=== PATIENT | female | born 1995 | race Caucasian/White ===

== ENCOUNTER 2018-08-01 17:08 | Outpatient (CLI) | payer MEDICAID ==
[2018-08-01 17:41] LABS: MICROSCOPIC INDICATED
[2018-08-01 17:47] LABS: AMPHETAMINE SCREEN, URINE Negative (Negative); BARBITURATE SCREEN, URINE Negative (Negative); BENZODIAZEPINE SCREEN, URINE Negative (Negative); CANNABINOID SCREEN, URINE Negative (Negative); COCAINE SCREEN, URINE Negative (Negative); METHADONE SCREEN, URINE Negative (Negative); OPIATE SCREEN, URINE Negative (Negative)
[2018-08-01 17:48] LABS: BASOPHILS # (AUTO) 0.03 x10^3/uL (0-0.1); BASOPHILS % (AUTO) 0 % (0-1); EOSINOPHILS # (AUTO) 0.02 x10^3/uL (0-0.4); EOSINOPHILS % (AUTO) 0 % (1-7); LYMPHOCYTES # (AUTO) 1.48 x10^3/uL (1-3.4); LYMPHOCYTES % (AUTO) 15 % (22-44); MD NO; MEAN CORPUSCULAR HEMOGLOBIN 24.4 pg (27.0-34.8); MEAN CORPUSCULAR HGB CONC 32.6 g/dL (32.4-35.8); MEAN CORPUSCULAR VOLUME 74.9 fL (80-100); MEAN PLATELET VOLUME 8.6 fL (7.4-10.4); MONOCYTES # (AUTO) 0.78 x10^3/uL (0.2-0.8); MONOCYTES % (AUTO) 8 % (2-9); NEUTROPHILS # (AUTO) 7.36 x10^3/uL (1.8-6.8); NEUTROPHILS % (AUTO) 76 % (42-75); PLATELET COUNT 241 x10^3/uL (130-400); RED BLOOD COUNT 3.75 x10^6/uL (3.82-5.3); RED CELL DISTRIBUTION WIDTH 15.9 % (9.6-15.2)
== END 2018-08-01 21:20 | disposition home or self-care (01) ==
LOC: LDOP 17:08 → UNDOADMOB 17:12 → LDIP 17:12 → LDOP 21:20
PROVIDERS: ATTEND Student in an Organized Health Care Education/Training Program
DX: O09.33 Supervision of pregnancy with insufficient antenatal care, third trimester (principal); O62.9 Abnormality of forces of labor, unspecified; O47.1 False labor at or after 37 completed weeks of gestation; O34.219 Maternal care for unspecified type scar from previous cesarean delivery; Z3A.37 37 weeks gestation of pregnancy
CPT/HCPCS: 36415; 59025; 76805; 80307; 81001; 85025; 86592; 86762; 86850; 86900; 87340; 87806; 99201; G0463; G0475

== ENCOUNTER 2018-08-16 18:03 | Inpatient (IN) | payer MEDICAID ==
[~2018-08-16] VITALS: Ht 152.4 cm; Wt 56.4 kg
[2018-08-16 18:18] VITALS: BP 134/80
[2018-08-16] MEDS ORDERED: OXYTOCIN 30U/ 0.9% NaCL 500ML 500 ML IV SCH (19:01)
[2018-08-16] MEDS ORDERED: LACTATED RINGERS 1,000 ML IVBOLUS ONE (19:30)
[2018-08-16] MEDS ORDERED: SODIUM CITRATE/CITRIC ACID 30 ML UDC PO ONE (19:30)
[2018-08-16] MEDS ORDERED: NEWBORN KIT ONE (19:30)
[2018-08-16] MEDS ORDERED: OXYTOCIN 30U/ 0.9% NaCL 500ML 500 ML ONE (19:30)
[2018-08-16] MEDS ORDERED: METOCLOPRAMIDE 5 MG/ML, 2ML IV ONE (19:30)
[2018-08-16] MEDS ORDERED: SODIUM CITRATE/CITRIC ACID 30 ML UDC ONE (19:31)
[2018-08-16] MEDS ORDERED: METOCLOPRAMIDE 5 MG/ML, 2ML ONE (19:31)
[2018-08-16] MEDS ORDERED: MISOPROSTOL 200 MCG TABLET ONE (19:31)
[2018-08-16 19:47] LABS: AMPHETAMINE SCREEN, URINE Negative (Negative); BARBITURATE SCREEN, URINE Negative (Negative); BENZODIAZEPINE SCREEN, URINE Negative (Negative); CANNABINOID SCREEN, URINE Negative (Negative); COCAINE SCREEN, URINE Negative (Negative); METHADONE SCREEN, URINE Negative (Negative); OPIATE SCREEN, URINE Negative (Negative)
[2018-08-16 19:54] LABS: BASOPHILS # (AUTO) 0.03 x10^3/uL (0-0.1); BASOPHILS % (AUTO) 0 % (0-1); EOSINOPHILS # (AUTO) 0.01 x10^3/uL (0-0.4); EOSINOPHILS % (AUTO) 0 % (1-7); LYMPHOCYTES # (AUTO) 1.83 x10^3/uL (1-3.4); LYMPHOCYTES % (AUTO) 20 % (22-44); MD NO; MEAN CORPUSCULAR HEMOGLOBIN 23.3 pg (27.0-34.8); MEAN CORPUSCULAR HGB CONC 31.8 g/dL (32.4-35.8); MEAN CORPUSCULAR VOLUME 73.3 fL (80-100); MEAN PLATELET VOLUME 9.4 fL (7.4-10.4); MONOCYTES # (AUTO) 0.62 x10^3/uL (0.2-0.8); MONOCYTES % (AUTO) 7 % (2-9); NEUTROPHILS # (AUTO) 6.49 x10^3/uL (1.8-6.8); NEUTROPHILS % (AUTO) 72 % (42-75); PLATELET COUNT 227 x10^3/uL (130-400); RED BLOOD COUNT 3.72 x10^6/uL (3.82-5.3); RED CELL DISTRIBUTION WIDTH 16.5 % (9.6-15.2)
[2018-08-16] MEDS ORDERED: OXYcodone 5 MG/5 ML ORAL.SOL UDC PO PRN (21:00)
[2018-08-16] MEDS ORDERED: ALBUTEROL SULFATE 2.5 MG/3 ML NPPB PRN (21:00)
[2018-08-16] MEDS ORDERED: HYDROmorphone 1 MG/ML, 1ML IV PRN (21:00)
[2018-08-16] MEDS ORDERED: hydrALAzine 20 MG/ML, 1ML IV PRN (21:00)
[2018-08-16] MEDS ORDERED: MEPERIDINE/PF 25MG/0.5ML IVPush PRN (21:00)
[2018-08-16] MEDS ORDERED: HYDROcodone/APAP 7.5-325MG/15ML UDC PO PRN (21:00)
[2018-08-16] MEDS ORDERED: PROMETHAZINE 25 MG/ML, 1ML IV PRN (21:00)
[2018-08-16] MEDS ORDERED: MIDAZOLAM 1 MG/ML, 2ML IV PRN (21:00)
[2018-08-16] MEDS ORDERED: EPHEDRINE 50 MG/ML, 1ML IVPush PRN (21:00)
[2018-08-16] MEDS ORDERED: LABETALOL 5MG/ML, 20ML IV PRN (21:00)
[2018-08-16] MEDS ORDERED: ONDANSETRON 2MG/ML, 2ML IVPush PRN (21:00)
[2018-08-16] MEDS ORDERED: FENTANYL PF 100 MCG/2ML IV PRN (21:00)
[2018-08-16] MEDS ORDERED: EPHEDRINE 50 MG/ML, 1ML ONE (21:06)
[2018-08-16] MEDS ORDERED: PHENYLEPHRINE 10 MG/ML ONE (21:06)
[2018-08-16] MEDS ORDERED: OXYTOCIN 10 UNITS/ML, 1ML ONE (21:06)
[2018-08-16] MEDS ORDERED: DEXAMETHASONE 4 MG/ML, 1ML ONE (21:06)
[2018-08-16] MEDS ORDERED: KETOROLAC 30 MG/1 ML ONE (21:06)
[2018-08-16] MEDS ORDERED: ONDANSETRON 2MG/ML, 2ML ONE (21:06)
[2018-08-16] MEDS ORDERED: CEFAZOLIN 1,000 MG ONE (21:06)
[2018-08-16] MEDS ORDERED: FENTANYL PF 100 MCG/2ML ONE (21:07)
[2018-08-16] MEDS: OXYTOCIN 30U/ 0.9% NaCL 500ML 500 ML IV SCH (21:10)
[2018-08-16] MEDS: LACTATED RINGERS 1,000 ML IV SCH ×2 (21:10→22:07)
[2018-08-16] MEDS ORDERED: ONDANSETRON 2MG/ML, 2ML IV PRN (21:30)
[2018-08-16] MEDS ORDERED: morphine SULFATE 10 MG/ML, 1ML IVPush PRN ×2 (21:30)
[2018-08-16] MEDS ORDERED: ACETAMINOPHEN 325 MG TABLET PO PRN (21:30)
[2018-08-16] MEDS: KETOROLAC 30 MG/1 ML IV SCH (21:30)
[2018-08-16] MEDS ORDERED: MISOPROSTOL 200 MCG TABLET PR PRN (21:30)
[2018-08-16] MEDS ORDERED: OXYcodone IR 5MG TABLET PO PRN (21:30)
[2018-08-16] MEDS ORDERED: LACTATED RINGERS 1,000 ML IV SCH ×2 (23:00)
[2018-08-17] VITALS: BP 124/77
[2018-08-17] MEDS: OXYcodone/APAP 5/325MG TABLET PO PRN ×5 (00:24→19:30)
[2018-08-17] MEDS: KETOROLAC 30 MG/1 ML IV SCH ×4 (03:28→21:25)
[2018-08-17 04:00] VITALS: BP 126/79
[2018-08-17 04:50] LABS: BASOPHILS # (AUTO) 0.05 x10^3/uL (0-0.1); BASOPHILS % (AUTO) 0 % (0-1); EOSINOPHILS % (AUTO) 0 % (1-7); LYMPHOCYTES # (AUTO) 0.94 x10^3/uL (1-3.4); LYMPHOCYTES % (AUTO) 7 % (22-44); MD NO; MEAN CORPUSCULAR HEMOGLOBIN 22.8 pg (27.0-34.8); MEAN CORPUSCULAR HGB CONC 31.5 g/dL (32.4-35.8); MEAN CORPUSCULAR VOLUME 72.4 fL (80-100); MEAN PLATELET VOLUME 9.6 fL (7.4-10.4); MONOCYTES # (AUTO) 0.71 x10^3/uL (0.2-0.8); MONOCYTES % (AUTO) 5 % (2-9); NEUTROPHILS % (AUTO) 88 % (42-75); PLATELET COUNT 200 x10^3/uL (130-400); RED BLOOD COUNT 3.52 x10^6/uL (3.82-5.3); RED CELL DISTRIBUTION WIDTH 16.5 % (9.6-15.2)
[2018-08-17] MEDS: LACTATED RINGERS 1,000 ML IV SCH ×5 (05:10→21:10)
[2018-08-17] MEDS: OXYTOCIN 30U/ 0.9% NaCL 500ML 500 ML IV SCH ×2 (07:10→17:10)
[2018-08-17 08:00] VITALS: BP 128/71
[2018-08-17] MEDS: DOCUSATE 100 MG CAPSULE PO PRN ×2 (08:18→19:30)
[2018-08-17] MEDS: PRENATAL VIT/IRON/FA 1 EACH TABLET PO SCH (08:18)
[2018-08-17 11:50] VITALS: BP 110/61
[2018-08-17 16:18] VITALS: BP 109/70
[2018-08-17 19:15] VITALS: BP 113/79
[2018-08-18] MEDS: OXYcodone/APAP 5/325MG TABLET PO PRN (00:37)
[2018-08-18] MEDS: LACTATED RINGERS 1,000 ML IV SCH ×2 (03:10→05:10)
[2018-08-18] MEDS: OXYTOCIN 30U/ 0.9% NaCL 500ML 500 ML IV SCH (03:10)
[2018-08-18] MEDS: KETOROLAC 30 MG/1 ML IV SCH ×3 (03:24→15:43)
[2018-08-18 07:20] VITALS: BP 106/74
[2018-08-18] MEDS: PRENATAL VIT/IRON/FA 1 EACH TABLET PO SCH (09:23)
[2018-08-18] MEDS: DOCUSATE 100 MG CAPSULE PO PRN ×2 (09:23→19:55)
[2018-08-18] MEDS: IBUPROFEN 600 MG TABLET PO PRN (19:55)
[2018-08-18 20:00] VITALS: BP 116/74
[2018-08-19 08:00] VITALS: BP 111/74
[2018-08-19] MEDS: IBUPROFEN 600 MG TABLET PO PRN (08:18)
[2018-08-19] MEDS: PRENATAL VIT/IRON/FA 1 EACH TABLET PO SCH (08:18)
[2018-08-19] MEDS: DOCUSATE 100 MG CAPSULE PO PRN (08:18)
[2018-08-19] MEDS ORDERED: OXYC-302 PO (11:18)
[2018-08-19] MEDS ORDERED: IBUP-1222 PO (11:20)
== END 2018-08-19 13:20 | disposition home or self-care (01) | DRG 788 ==
LOC: LDOP 18:03 → LDIP 19:14 → 2NW 23:41
PROVIDERS: ADMIT Family Medicine; ATTEND Obstetrics & Gynecology
PROC: 10D00Z1 Extraction of Products of Conception, Low, Open Approach (ICD-10-PCS; principal; 2018-08-16)
DX: O34.211 Maternal care for low transverse scar from previous cesarean delivery (principal); Z37.0 Single live birth; Z3A.39 39 weeks gestation of pregnancy
CPT/HCPCS: 36415; 80307; 85025; 86850; 86900; 86923; G0378; J0690; J1100; J1885; J2405; J3010; J2370; J2590; J2765; J7120

== ENCOUNTER 2020-01-31 20:45 | Emergency (ER) | payer MEDICAID ==
[~2020-01-31] VITALS: Ht 152.4 cm; Wt 50.3 kg
[~2020-01-31 20:45] MED LIST: IBUP-1222 PO; OXYC-302 PO
[2020-01-31 20:46] VITALS: BP 122/71
[2020-01-31] MEDS ORDERED: PHENAZOPYRIDINE 200 MG TABLET ONE (21:18)
[2020-01-31] MEDS ORDERED: PHENAZOPYRIDINE 200 MG TABLET PO ONE (21:30)
[2020-01-31 21:44] LABS: MICROSCOPIC AUTO
[2020-01-31 21:49] LABS: CULTURE INDICATED? YES
== END 2020-01-31 22:48 | disposition home or self-care (01) ==
LOC: ED 22:38
DX: N30.01 Acute cystitis with hematuria (principal); R30.0 Dysuria
CPT/HCPCS: 81001; 87077; 87086; 87186; 99283